=== PATIENT | female | born 2000 | race African-American/Black ===

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

== ENCOUNTER 2019-04-08 18:31 | Emergency (ER) | payer OTHER ==
[~2019-04-08] VITALS: Ht 149.9 cm; Wt 47.7 kg
[2019-04-08 21:03] VITALS: BP 110/70
== END 2019-04-08 21:15 | disposition home or self-care (01) ==
LOC: EMS 18:32
DX: K08.89 Other specified disorders of teeth and supporting structures (principal)

== ENCOUNTER 2020-03-30 09:49 | Emergency (ER) | payer OTHER ==
[~2020-03-30] VITALS: Ht 160 cm; Wt 61.4 kg
[2020-03-30] MEDS ORDERED: ANTIBIOTIC PO (10:02)
[2020-03-30 10:45] LABS: APPEARANCE,URINE CLOUDY (CLEAR); GLUCOSE, URINE (UA) NEGATIVE (NEGATIVE); KETONES,URINE NEGATIVE (NEGATIVE); LEUKOCYTE ESTERASE ,URINE MODERATE (NEGATIVE); NITRATE,URINE NEGATIVE (NEGATIVE); OCCULT BLOOD,URINE TRACE (NEGATIVE); PROTEIN,URINE POS 1+ (NEGATIVE)
[2020-03-30 10:56] LABS: BILIRUBIN,URINE PRELIM. POSITIVE (NEGATIVE)
[2020-03-30 11:10] LABS: WBC,URINE 26-50 /HPF (0-5)
[2020-03-30 11:11] LABS: BACTERIA,URINE Few /HPF (None Seen); SQUAMOUS EPITHELIAL CELL,UR Moderate /LPF (None Seen)
[2020-03-30 12:30] VITALS: BP 107/60
== END 2020-03-30 12:55 | disposition home or self-care (01) ==
LOC: EMS 09:58
DX: N39.0 Urinary tract infection, site not specified (principal)
CPT/HCPCS: 87086